=== PATIENT | female | born 1965 | race Caucasian/White ===

== ENCOUNTER 2017-01-21 11:19 | Emergency (ER) | payer OTHER ==
[2017-01-21 11:26] VITALS: BP 130/81; TEMP 98.4
[2017-01-21] MEDS ORDERED: predniSONE 20 MG TAB PO ONE (11:42)
[2017-01-21] MEDS ORDERED: IPRATROPIUM/ALBUTEROL 3 ML DEYVIAL IH ONE (11:42)
[2017-01-21 12:03] VITALS: PULSE 66; RESP 16; O2SAT 100
--- NOTE | 2017-01-21 12:10 | EDPHY ---
H & P Stated Complaint: cough, short of breath, tight across chest x 4 days Time Seen by Provider: 01/21/17 11:32 HPI/ROS: Chief Complaint: Difficulty breathing HPI: 51-year-old woman with a history of asthma has had worsening shortness of breath for the last for 5 days. She has increased should Advair to 250. She has been using her nebulizer 3 times a day with no significant improvement. Denies any fevers or chills. She has a nonproductive cough. No nausea or vomiting. ROS: 10 point Review of Systems is negative except as noted in the HPI. PMH: Asthma Social History: No smoking, no alcohol, no recreational drug use Family History: non-contributory Physical Exam: Gen: Awake, Alert, No Distress HEENT: Nose: no rhinorrhea Eyes: PERRLA, EOMI Mouth: Moist mucosa Neck: Supple, no JVD Chest: nontender, mild diffuse expiratory wheezes, good air movement, prolonged expiratory phase. Heart: S1, S2 normal, no murmur Abd: Soft, non-tender, no guarding Back: no CVA tenderness, no midline tenderness Ext: no edema, non-tender Skin: no rash Neuro: CN II-XII intact, Sensation grossly intact, Strength 5/5 in bilateral upper and lower extremities - Personal History Current Tetanus/Diphtheria Vaccine: Yes Tetanus Vaccine Date: WITHIN 10 YRS - Medical/Surgical History Hx Asthma: Yes Hx Chronic Respiratory Disease: Yes Hx Diabetes: No Hx Cardiac Disease: No Hx Renal Disease: No Hx Cirrhosis: No Hx Alcoholism: No Hx HIV/AIDS: No Hx Splenectomy or Spleen Trauma: No Other PMH: TONSILECTOMY, GLAND SURG. asthma, depression - Social History Smoking Status: Former smoker Constitutional: Initial Vital Signs Temperature (C) 36.9 C 01/21/17 11:23 Heart Rate 83 01/21/17 11:23 Respiratory Rate 18 01/21/17 11:23 Blood Pressure 130/81 H 01/21/17 11:23 O2 Sat (%) 97 01/21/17 11:23 Allergies/Adverse Reactions: No Known Allergies Allergy (Verified 01/21/17 11:26) Home Medications: Medication Instructions Recorded Wellbutrin Sr 02/04/15 Advair 250/50 (*) 01/21/17 Albuterol 01/21/17 Albuterol Sulfate 5 mg IH Q4 PRN #25 solution 01/21/17 Flonase Nasal [place] 01/21/17 Ventolin Hfa 01/21/17 predniSONE 60 mg PO DAILY #9 tab 01/21/17 Medical Decision Making ED Course/Re-evaluation: Patient's peak flows 450. Productive for 75. She is improved after a DuoNeb. Will send her home with prescription for prednisone. Follow up with primary care physician in 3-4 days. Departure - Departure Disposition: Home, Routine, Self-Care Clinical Impression: Exacerbation of asthma Condition: Good Instructions: Asthma (ED) Additional Instructions: Follow up with primary care physician in 3-4 days if symptoms are not improving. Return to the emergency department for increasing shortness of breath, fevers, chills, worsening cough, or any other concerns. Referrals: Hernandez Miller MD [Primary Care Provider] - As per Instructions Prescriptions: Albuterol Sulfate 5 mg IH Q4 PRN #25 solution PRN Reason: Wheezing predniSONE 60 mg PO DAILY #9 tab
== END 2017-01-21 12:14 | disposition home or self-care (01) ==
LOC: CED 11:19
DX: J45.901 Unspecified asthma with (acute) exacerbation (principal); Z87.891 Personal history of nicotine dependence